=== PATIENT | female | born 1945 | race Caucasian/White ===

== ENCOUNTER 2017-10-18 19:23 | Inpatient (IN) | payer OTHER ==
[2017-10-18] MEDS ORDERED: ALBUTEROL 2.5 MG/3 ML NEB SOL ONE (20:47)
[2017-10-18] MEDS ORDERED: IPRATROPIUM BROM 0.5MG/2.5ML ONE (20:47)
[2017-10-18 21:16] LABS: Absolute Lymphocytes (CBC) 3.2 K/uL (0.7-4.9); Absolute Neutrophil 10.9 K/uL (1.8-8.0); Basophils % 0.4 % (0-1.3); Hematocrit 40.7 % (36.0-45.0); Lymphocytes % 20.8 % (15.3-44.8); MCH 31.9 pg (27.0-35.0); MCV 91.1 fL (80-100); MPV 6.9 fL (7.6-11.3); Monocytes % 6.8 % (3.3-12.3); RBC Red Blood Cell Count 4.47 M/uL (3.86-4.86)
[2017-10-18 21:37] LABS: ALT/SGPT 17 U/L (12-78); AST/SGOT 9 U/L (15-37); Albumin 3.6 g/dL (3.4-5.0); Alkaline Phosphatase 82 U/L (45-117); BUN Blood Urea Nitrogen 7 mg/dL (7-18); Bicarbonate 29 mmol/L (21-32); Bilirubin Direct 0.1 mg/dL (0-0.2); Bilirubin Total 0.4 mg/dL (0.2-1.0); Glucose Level 119 mg/dL (74-106); Lipase 369 U/L (73-393); NT PRO-BNP 122 pg/mL (<125); Potassium 3.6 mmol/L (3.5-5.1); Protein, Total 7.5 g/dL (6.4-8.2); Sodium Level 132 mmol/L (136-145)
--- NOTE | 2017-10-18 21:51 | RAD REPORT ---
EXAM DESCRIPTION: Janes Single View10/18/2017 9:27 pm CLINICAL HISTORY: sob COMPARISON: October 14, 2017 FINDINGS: The lungs are hyperaerated. The lung interstitial pattern is mildly prominent. I suspect this is chronic. The heart is normal size. Aorta is tortuous/ectatic IMPRESSION: COPD without visualization of an acute abnormality
[2017-10-18] MEDS ORDERED: METHYLPREDNISOLONE 125 MG INJ ONE (22:00)
--- NOTE | 2017-10-18 23:50 | ER ---
Nurse's Notes [facility] Name: Yina Edouard Age: 72 yrs Sex: Female : 1945 Arrival Date: 10/18/2017 Time: 19:27 Bed 8 Private MD: Tevin Iniguez R Diagnosis: Dyspnea, unspecified;Chronic obstructive pulmonary disease, unspecified Presentation: 10/18 19:32 Presenting complaint: Patient states: SOB for 3 weeks, DX with bronchitis. Given ABX aj and steroids, reports that she is not improving. Transition of care: patient was not received from another setting of care. Onset of symptoms was September 30, 2017. Risk Assessment: Do you want to hurt yourself or someone else? Patient reports no desire to harm self or others. Initial Sepsis Screen: Does the patient meet any 2 criteria? No. Patient's initial sepsis screen is negative. Does the patient have a suspected source of infection? No. Patient's initial sepsis screen is negative. Care prior to arrival: None. 19:32 Method Of Arrival: Ambulatory 19:32 Acuity: ABEL 3 aj Triage Assessment: 19:35 General: Appears in no apparent distress. uncomfortable, Behavior is calm, cooperative, aj appropriate for age. Pain: Denies pain. Neuro: Level of Consciousness is awake, alert, obeys commands, Oriented to person, place, time, situation, Appropriate for age. Respiratory: Reports shortness of breath cough that is Airway is patent Respiratory effort is even, labored, Respiratory pattern is symmetrical, tachypnea Breath sounds with wheezes bilaterally. Onset: The symptoms/episode began/occurred gradually, the patient has mild shortness of breath. Derm: Skin is intact, is healthy with good turgor, Skin is pink, warm \T\ dry. normal. Historical: - Allergies: 19:35 Sulfa (Sulfonamide Antibiotics); aj - Home Meds: 19:35 Levaquin Oral [Active]; metformin 500 mg oral tab 2 times per day [Active]; aj lisinopril-hydrochlorothiazide 20-25 mg oral tab 1 tab once daily [Active]; simvastatin 40 mg Oral tab 1 tab once daily [Active]; clopidogrel 75 mg oral tab once daily [Active]; aspirin 81 mg Oral chew 1 tab once daily [Active]; - PMHx: 19:35 Diabetes - NIDDM; Hypertension; Bronchitis; aj - PSHx: 19:35 Heart stents; aj - Immunization history:: Adult Immunizations up to date. - Social history:: Smoking status: Patient uses tobacco products, Patient reports being heavy smoker until symptoms started. Has not smoked in 3 weeks since symptom onset. - Ebola Screening: : Patient negative for fever greater than or equal to 101.5 degrees Fahrenheit, and additional compatible Ebola Virus Disease symptoms Patient denies exposure to infectious person Patient denies travel to an Ebola-affected area in the 21 days before illness onset No symptoms or risks identified at this time. - Family history:: not pertinent. - Hospitalizations: : No recent hospitalization is reported. Screenin:14 Abuse screen: Denies threats or abuse. Denies injuries from another. Nutritional lp1 screening: No deficits noted. Tuberculosis screening: No symptoms or risk factors identified. Fall Risk None identified. Assessment: 20:30 General: Appears uncomfortable, Behavior is appropriate for age. Pain: Complains of lp1 pain in chest Aggravated by increased activity. Neuro: Level of Consciousness is awake, alert, obeys commands, Oriented to person, place, time, situation. Cardiovascular: Patient's skin is warm and dry. Rhythm is sinus rhythm. Respiratory: Airway is patent Trachea midline Respiratory effort is even, labored, Respiratory pattern is symmetrical, Breath sounds are diminished bilaterally. Onset: The symptoms/episode began/occurred gradually, the patient has moderate shortness of breath. GI: Abdomen is non-distended. : No signs and/or symptoms were reported regarding the genitourinary system. EENT: No signs and/or symptoms were reported regarding the EENT system. Derm: Skin is pink, warm \T\ dry. Musculoskeletal: Circulation, motion, and sensation intact. 21:30 Respiratory: Respiratory effort is even, Respiratory pattern is symmetrical, Breath lp1 sounds are diminished bilaterally. 21:30 Reassessment: Patient sitting up at 90 degrees for comfort. lp1 22:30 Reassessment: Patient appears in no apparent distress at this time. Patient and/or lp1 family updated on plan of care and expected duration. Pain level reassessed. Patient sitting up in bed. 23:30 Reassessment: Patient appears in no apparent distress at this time. Patient and/or lp1 family updated on plan of care and expected duration. Pain level reassessed. Patient is alert, oriented x 3, equal unlabored respirations, skin warm/dry/pink. Patient states feeling better. Vital Signs: 19:35 BP 141 / 99; Pulse 81; Resp 16; Temp 98.2; Pulse Ox 95% on R/A; Weight 70.31 kg; Height aj 5 ft. 3 in. (160.02 cm); 20:30 BP 136 / 96; Pulse 74; Resp 20; Pulse Ox 97% on 2 lpm NC; lp1 21:30 BP 124 / 69; Pulse 76; Resp 19; Pulse Ox 98% on 2 lpm NC; lp1 22:30 BP 115 / 62; Pulse 74; Resp 22; Pulse Ox 97% on 2 lpm NC; lp1 23:00 BP 126 / 68; Pulse 75; Resp 19; Pulse Ox 97% on R/A; lp1 10/19 00:00 BP 133 / 84; Pulse 70; Resp 20; Pulse Ox 96% on 2 lpm NC; lp1 10/18 19:35 Body Mass Index 27.46 (70.31 kg, 160.02 cm) aj ED Course: 10/18 19:27 Patient arrived in ED. es 19:27 Tevin Iniguez MD is Private Physician. es 19:33 Triage completed. aj 19:35 Arm band placed on left wrist. aj 20:06 Pee Ortiz MD is Attending Physician. rn 20:42 Emilie Sneed, LINK is Primary Nurse. lp1 20:50 Missed attempt(s): 20 gauge in right forearm. lp1 20:55 First set of blood cultures drawn by me. Inserted saline lock: 20 gauge in right lp1 antecubital area, using aseptic technique. Blood collected. 21:15 Patient has correct armband on for positive identification. Placed in gown. Bed in low lp1 position. improvement spec on. Pulse ox on. NIBP on. 21:25 XRAY CXR (1 view) In Process Unspecified. EDMS 21:25 X-ray completed. Portable x-ray completed in exam room. Patient tolerated procedure kw well. 21:45 No provider procedures requiring assistance completed. lp1 23:50 Tevin Iniguez MD is Hospitalizing Provider. rn 10/19 00:40 Patient admitted, IV remains in place. lp1 Administered Medications: 10/18 20:50 Drug: Albuterol 2.5 mg Route: Inhalation; lp1 20:50 Drug: AtroVENT Aerosol 0.5 mg Route: Inhalation; lp1 22:05 Drug: SOLU-Medrol 125 mg Route: IVP; Site: right antecubital; lp1 23:00 Follow up: Response: No adverse reaction lp1 Outcome: 23:50 Decision to Hospitalize by Provider. link 10/19 00:40 Condition: stable lp1 Instructed on the need for admit. 00:44 Admitted to Med/surg via wheelchair, room 231, with oxygen, with chart, Report called lp1 to Robyn Navarro RN 00:58 Patient left the ED. lp1 Signatures: Dispatcher [employer] Mis Marquez RN RN aj Salyer, Edna es Nieto, Roman, MD MD rn Whitley, Kimberlee kw Pena, Laura, RN RN lp1
--- NOTE | 2017-10-18 23:50 | EDPHYS ---
Physician Documentation [facility] Name: Yina Edouard Age: 72 yrs Sex: Female : 1945 Arrival Date: 10/18/2017 Time: 19:27 Bed 8 Private MD: Tevin Iniguez R ED Physician Pee Ortiz HPI: 10/18 20:23 This 72 yrs old Female presents to ER via Ambulatory with complaints of rn Breathing Difficulty. 20:23 The patient has shortness of breath at rest, with light activity. Onset: The rn symptoms/episode began/occurred 2 week(s) ago. Duration: The symptoms are continuous. The patient's shortness of breath is aggravated by exertion, light activity, supine position, talking, walking. Associated signs and symptoms: Pertinent positives: productive cough, Pertinent negatives: fever, hemoptysis. Severity of symptoms: At their worst the symptoms were moderate in the emergency department the symptoms are unchanged. The patient has experienced similar episodes in the past. The patient has been recently seen by a physician:. Has been on steroids, amoxicillin, levofloxacin, inhaler, slowly worsening over last 2 weeks, no fever, + cough, seen by pcp twice, not improving, not on oxygen at home, no longer smokes. . Historical: - Allergies: 19:35 Sulfa (Sulfonamide Antibiotics); aj - Home Meds: 19:35 Levaquin Oral [Active]; metformin 500 mg oral tab 2 times per day [Active]; aj lisinopril-hydrochlorothiazide 20-25 mg oral tab 1 tab once daily [Active]; simvastatin 40 mg Oral tab 1 tab once daily [Active]; clopidogrel 75 mg oral tab once daily [Active]; aspirin 81 mg Oral chew 1 tab once daily [Active]; - PMHx: 19:35 Diabetes - NIDDM; Hypertension; Bronchitis; aj - PSHx: 19:35 Heart stents; aj - Immunization history:: Adult Immunizations up to date. - Social history:: Smoking status: Patient uses tobacco products, Patient reports being heavy smoker until symptoms started. Has not smoked in 3 weeks since symptom onset. - Ebola Screening: : Patient negative for fever greater than or equal to 101.5 degrees Fahrenheit, and additional compatible Ebola Virus Disease symptoms Patient denies exposure to infectious person Patient denies travel to an Ebola-affected area in the 21 days before illness onset No symptoms or risks identified at this time. - Family history:: not pertinent. - Hospitalizations: : No recent hospitalization is reported. ROS: 20:23 Constitutional: Negative for fever, chills, and weight loss, Eyes: Negative for injury, rn pain, redness, and discharge, Cardiovascular: Negative for chest pain, palpitations Respiratory: Negative for wheezing, and pleuritic chest pain, Abdomen/GI: + mild abd cramping and diarrhea MS/Extremity: Negative for injury and deformity, Skin: Negative for injury, rash, and discoloration, Neuro: Negative for headache, weakness, numbness, tingling, and seizure. Exam: 20:23 Constitutional: This is a well developed, well nourished patient who is awake, alert, rn and in no acute distress. Head/Face: Normocephalic, atraumatic. Eyes: Pupils equal round and reactive to light, extra-ocular motions intact. Lids and lashes normal. Conjunctiva and sclera are non-icteric and not injected. Cornea within normal limits. Periorbital areas with no swelling, redness, or edema. Neck: Trachea midline, no thyromegaly or masses palpated, and no cervical lymphadenopathy. Supple, full range of motion without nuchal rigidity, or vertebral point tenderness. No Meningismus. Cardiovascular: Regular rate and rhythm with a normal S1 and S2. No gallops, murmurs, or rubs. Normal PMI, no JVD. No pulse deficits. Respiratory: + mild tachypnea with 5 word sentences, no retractions, diminished bilateral bases Abdomen/GI: soft, non-tender MS/ Extremity: Pulses equal, no cyanosis. Neurovascular intact. Full, normal range of motion. Equal circumference. Neuro: Awake and alert, GCS 15, oriented to person, place, time, and situation. Cranial nerves II-XII grossly intact. Motor strength 5/5 in all extremities. Sensory grossly intact. Vital Signs: 19:35 BP 141 / 99; Pulse 81; Resp 16; Temp 98.2; Pulse Ox 95% on R/A; Weight 70.31 kg; Height aj 5 ft. 3 in. (160.02 cm); 20:30 BP 136 / 96; Pulse 74; Resp 20; Pulse Ox 97% on 2 lpm NC; lp1 21:30 BP 124 / 69; Pulse 76; Resp 19; Pulse Ox 98% on 2 lpm NC; lp1 22:30 BP 115 / 62; Pulse 74; Resp 22; Pulse Ox 97% on 2 lpm NC; lp1 23:00 BP 126 / 68; Pulse 75; Resp 19; Pulse Ox 97% on R/A; lp1 10/19 00:00 BP 133 / 84; Pulse 70; Resp 20; Pulse Ox 96% on 2 lpm NC; lp1 10/18 19:35 Body Mass Index 27.46 (70.31 kg, 160.02 cm) aj MDM: 10/18 20:06 Patient medically screened. rn 23:49 Differential diagnosis: asthma, Bronchitis Chronic Obstructive Pulmonary Disease rn Myocardial Infarction pneumonia, Pneumothorax pulmonary edema, reactive airway disease, Sepsis. Data reviewed: vital signs, nurses notes, lab test result(s), EKG, radiologic studies, plain films, and as a result, I will admit patient. Counseling: I had a detailed discussion with the patient and/or guardian regarding: the historical points, exam findings, and any diagnostic results supporting the discharge/admit diagnosis, lab results, radiology results, the need for further work-up and treatment in the hospital. Response to treatment: the patient's symptoms have mildly improved after treatment, and as a result, I will admit patient. Admission orders: after a detailed discussion of the patient's condition and case, the admit orders are written by me. 23:49 ED course: Consulted Dr. Iniguez, will admit for dyspnea, no change in CXR, improved rn slightly with steroids and inhaled treatments.. 10/18 20:15 Order name: Blood Culture Adult (2) rn 10/18 20:15 Order name: BMP; Complete Time: 21:52 10/18 20:15 Order name: CBC with Diff; Complete Time: 23:48 10/18 20:15 Order name: Hepatic Function; Complete Time: 21:52 10/18 20:15 Order name: Lipase; Complete Time: 21:52 10/18 20:15 Order name: NT PRO-BNP; Complete Time: 21:52 10/18 20:15 Order name: XRAY CXR (1 view); Complete Time: 21:52 10/18 20:15 Order name: Troponin (emerg Dept Use Only); Complete Time: 21:52 10/18 20:15 Order name: EKG; Complete Time: 20:15 rn 10/18 20:15 Order name: Procalcitonin; Complete Time: 23:48 rn 10/18 20:15 Order name: Blood Culture [facility] 10/18 20:15 Order name: Cardiac monitoring; Complete Time: 21:14 rn 10/18 20:15 Order name: EKG - Nurse/Tech; Complete Time: 21:35 rn 10/18 20:15 Order name: IV Saline Lock; Complete Time: 21:13 rn 10/18 20:15 Order name: Labs collected and sent; Complete Time: 21:13 rn 10/18 20:15 Order name: O2 Per Protocol; Complete Time: 21:14 rn 10/18 20:15 Order name: O2 Sat Monitoring; Complete Time: 21:14 rn Administered Medications: 20:50 Drug: Albuterol 2.5 mg Route: Inhalation; lp1 20:50 Drug: AtroVENT Aerosol 0.5 mg Route: Inhalation; lp1 22:05 Drug: SOLU-Medrol 125 mg Route: IVP; Site: right antecubital; lp1 23:00 Follow up: Response: No adverse reaction lp1 Disposition: 10/18/17 23:50 Hospitalization ordered by Tevin Iniguez for Inpatient Admission. Preliminary diagnosis are Dyspnea, unspecified, Chronic obstructive pulmonary disease, unspecified. - Bed requested for Telemetry/MedSurg (Inpatient). - Status is Inpatient Admission. lp1 - Condition is Stable. - Problem is an ongoing problem. - Symptoms have improved. UTI on Admission? No Signatures: Dispatcher [employer] [facility] Brigid Smith RN RN kl Myers, Amanda, RN RN aj Nieto, Roman, MD MD rn Pena, Laura, RN RN lp1 Corrections: (The following items were deleted from the chart) 20:26 20:23 Constitutional: Negative for fever, chills, and weight loss, Eyes: Negative for rn injury, pain, redness, and discharge, Cardiovascular: Negative for chest pain, palpitations Respiratory: Negative for wheezing, and pleuritic chest pain, Abdomen/GI: Negative for abdominal pain, nausea, vomiting, diarrhea, and constipation, MS/Extremity: Negative for injury and deformity, Skin: Negative for injury, rash, and discoloration, Neuro: Negative for headache, weakness, numbness, tingling, and seizure, rn 10/19 00:24 10/18 23:50 Hospitalization Ordered by Tevin Iniguez MD for Inpatient Admission. Preliminary diagnosis is Dyspnea, unspecified; Chronic obstructive pulmonary disease, unspecified. Bed requested for Telemetry/MedSurg (Inpatient). Status is Inpatient Admission. Condition is Stable. Problem is an ongoing problem. Symptoms have improved. UTI on Admission? No. rn 10/19 00:27 00:24 10/18/2017 23:50 Hospitalization Ordered by Tevin Iniguez MD for Inpatient kl Admission. Preliminary diagnosis is Dyspnea, unspecified; Chronic obstructive pulmonary disease, unspecified. Bed requested for Telemetry/MedSurg (Inpatient). Status is Inpatient Admission. Condition is Stable. Problem is an ongoing problem. Symptoms have improved. UTI on Admission? No. kl 00:58 00:27 10/18/2017 23:50 Hospitalization Ordered by Tevin Iniguez MD for Inpatient lp1 Admission. Preliminary diagnosis is Dyspnea, unspecified; Chronic obstructive pulmonary disease, unspecified. Bed requested for Telemetry/MedSurg (Inpatient). Status is Inpatient Admission. Condition is Stable. Problem is an ongoing problem. Symptoms have improved. UTI on Admission? No. kl
[2017-10-19] MEDS ORDERED: ACETAMINOPHEN 500 MG TAB PO PRN (00:49)
[2017-10-19] MEDS ORDERED: ONDANSETRON 4 MG/2 ML VIAL IV PRN (00:49)
[2017-10-19] MEDS: METHYLPREDNISOLONE 40 MG INJ IV SCH ×3 (01:00→16:37)
[2017-10-19] MEDS: IPRATROPIUM BROM 0.5MG/2.5ML NEB SCH ×8 (01:22→23:14)
[2017-10-19] MEDS: ALBUTEROL 2.5 MG/3 ML NEB SOL NEB SCH ×8 (01:22→23:14)
[2017-10-19 02:54] LABS: Urine Appearance CLOUDY; Urine Bilirubin NEGATIVE (NEG); Urine Blood NEGATIVE (NEG); Urine Color DK YELLOW; Urine Glucose NEGATIVE (NEG); Urine Protein NEGATIVE (NEG); Urine Urobilinogen 0.2 mg/dL (0.2-1.0); Urine pH 6.5 (5.0-7.0)
[2017-10-19 02:55] LABS: Urine Microscopic Reflex ORDER UMIC
[2017-10-19 03:04] LABS: Calcium Oxalate Crystals- Ur MANY (NONE SEEN); Urine Bacteria <20 /HPF (<20); Urine Culture Reflex Order NOT NEEDED; Urine RBC NONE SEEN /HPF (NONE SEEN)
[2017-10-19 05:29] LABS: Absolute Lymphocytes (CBC) 1.1 K/uL (0.7-4.9); Absolute Monocytes 0.2 K/uL (0.1-1.3); Basophils % 0.1 % (0-1.3); Hematocrit 38.4 % (36.0-45.0); Lymphocytes % 8.6 % (15.3-44.8); MCV 91.2 fL (80-100); MPV 6.8 fL (7.6-11.3); Monocytes % 1.4 % (3.3-12.3); RBC Red Blood Cell Count 4.21 M/uL (3.86-4.86)
[2017-10-19 05:44] LABS: BUN Blood Urea Nitrogen 8 mg/dL (7-18); Bicarbonate 27 mmol/L (21-32); Glucose Level 213 mg/dL (74-106); NT PRO-BNP 90 pg/mL (<125); Potassium 3.4 mmol/L (3.5-5.1); Sodium Level 132 mmol/L (136-145)
[2017-10-19 06:00] LABS: Blood Morphology Comment NOT SEEN (NOT SEEN); Platelet Estimate ADEQ
[2017-10-19] MEDS: ASPIRIN EC 81 MG TAB PO SCH (08:16)
[2017-10-19] MEDS: AZITHROMYCIN 250 MG TAB PO SCH (10:09)
--- NOTE | 2017-10-19 10:28 | EKG ---
Test Date: 2017-10-18 Test Time: 21:30:50 Greenhouse Specialist: FLAVIO MEASUREMENT RESULTS: Intervals: Rate: 78 DE: 160 QRSD: 80 QT: 416 QTc: 474 [place]: P: 63 DE: 160 QRS: 33 T: 42 INTERPRETIVE STATEMENTS: Normal sinus rhythm Right atrial enlargement Borderline ECG Compared to ECG 04/11/2003 06:14:00 Atrial abnormality now present Sinus bradycardia no longer present T-wave abnormality no longer present Possible ischemia no longer present Electronically Signed On 10-19-17 10:27:15 CDT by Gian Ornelas
[2017-10-19] MEDS ORDERED: AZITHROMYCIN 250 MG TAB PO SCH (21:00)
[2017-10-20] MEDS: ALBUTEROL 2.5 MG/3 ML NEB SOL NEB SCH ×8 (00:49→23:12)
[2017-10-20] MEDS: IPRATROPIUM BROM 0.5MG/2.5ML NEB SCH ×8 (00:49→23:12)
[2017-10-20] MEDS: METHYLPREDNISOLONE 40 MG INJ IV SCH ×2 (01:31→07:53)
--- NOTE | 2017-10-20 02:40 | HP ---
Date of Admission: 10/19/2017 Chief Complaint: Coughing and wheezing. History Of Present Illness: A 72-year-old female who was seen in the office recently for upper respi ratory infection and bronchitis. She was given oral antibiotic; however, she returned because of con tinued coughing. Chest x-ray was done. There was no evidence of pneumonia. The patient was given L evaquin. However, the patient returned to the emergency room because of continued coughing and wheez ing. The patient had a repeat chest x-ray. There is no pneumonia. However, her white count is 13.3 . In view of her continued symptoms in spite of oral antibiotics, the patient is admitted for IV ernie roid therapy, nebulizer therapy in addition to the antibiotics. The patient denied any history of ch est pain. Past Medical History: 1.Positive for COPD. 2.Hyperlipidemia. 3.Hypertension. 4.History of coronary artery disease. Past Surgical History: Positive for coronary stenting. Review of Systems: No chest pain. Physical Examination: General: Revealed a 72-year-old female with audible wheezing. Temperature normal. HEENT: Congested throat. Neck: Supple. JVD negative. Chest: Bilateral wheezes. Heart: Regular. Abdomen: Soft. Extremities: No edema. Laboratory Data: White count 13,000. Chest x-ray, COPD changes. Assessment: 1.Chronic obstructive pulmonary disease exacerbation, not responding to oral antibiotics and steroid s. 2.Chronic obstructive pulmonary disease. 3.Hypertension. 4.Hyperlipidemia. 5.Known coronary artery disease, stable. Plan: The patient is started on IV steroids and breathing treatments. She will be restarted on her regular medications. POLINA/ANGELIKA Voice ID: [id number]
[2017-10-20] MEDS: AZITHROMYCIN 250 MG TAB PO SCH (07:53)
[2017-10-20] MEDS: ASPIRIN EC 81 MG TAB PO SCH (07:53)
[2017-10-20] MEDS: predniSONE 20 MG TAB PO SCH (20:57)
--- NOTE | 2017-10-20 21:10 | PN ---
The patient's wheezing is better with the IV steroids. She is ambulating in the room. Her O2 satura tion looks upish. She will be changed to oral steroids today and re-examined and assessed tomorrow. POLINA/ANGELIKA Voice ID: [id number] Report ID: [id number]
[2017-10-21] MEDS: IPRATROPIUM BROM 0.5MG/2.5ML NEB SCH ×2 (03:42→07:52)
[2017-10-21] MEDS: ALBUTEROL 2.5 MG/3 ML NEB SOL NEB SCH ×2 (03:42→07:52)
[2017-10-21] MEDS: predniSONE 20 MG TAB PO SCH (09:08)
[2017-10-21] MEDS: AZITHROMYCIN 250 MG TAB PO SCH (09:08)
[2017-10-21] MEDS: ASPIRIN EC 81 MG TAB PO SCH (09:08)
--- NOTE | 2017-11-29 13:50 | DS ---
Date of Discharge: 10/21/2017 Final Diagnoses: 1.Chronic obstructive pulmonary disease exacerbation. 2.Chronic obstructive pulmonary disease. 3.Hypertension. 4.Hyperlipidemia. 5.Stable coronary artery disease. Hospital Course: After admission to the hospital, the patient received [id number] breathing tr eatments. She also received IV steroids. The patient was restarted on her regular medications. The patient showed improvement over the next few days and was discharged home on 10/21/2017 on oral ster oid and to have follow up in the office. Laboratory Data: Please refer to the chart. POLINA/ANGELIKA Voice ID: [id number] Report ID: [id number]
== END 2017-10-21 09:52 | disposition home or self-care (01) | DRG 192 ==
LOC: ER 19:23 → 2ND 10-19 00:46
PROVIDERS: ADMIT Internal Medicine; ATTEND Internal Medicine
DX: J44.1 Chronic obstructive pulmonary disease with (acute) exacerbation (principal); E78.5 Hyperlipidemia, unspecified; I10 Essential (primary) hypertension; I25.10 Atherosclerotic heart disease of native coronary artery without angina pectoris; Z95.5 Presence of coronary angioplasty implant and graft; Z87.891 Personal history of nicotine dependence; Z79.02 Long term (current) use of antithrombotics/antiplatelets; Z79.82 Long term (current) use of aspirin; Z88.2 Allergy status to sulfonamides
CPT/HCPCS: 36415; 71045; 71275; 80048; 80076; 81003; 81015; 82550; 82553; 82805; 83690; 83735; 83880; 84145; 84484; 85025; 85610; 85730; 87040; 87070; 87205; 93005; 94640; 94760; 96374; 96375; 99285; J2920; J2930; J7030; J7512; Q9967

== ENCOUNTER 2017-10-21 17:50 | Emergency (ER) | payer OTHER ==
[2017-10-21] MEDS ORDERED: IPRATROPIUM BROM 0.5MG/2.5ML ONE (18:44)
[2017-10-21] MEDS ORDERED: ALBUTEROL 2.5 MG/3 ML NEB SOL ONE (18:44)
[2017-10-21] MEDS ORDERED: Levofloxacin500mg IV 500 MG/100 ML BAG IV ONE (18:58)
[2017-10-21] MEDS ORDERED: METHYLPREDNISOLONE 125 MG INJ ONE (18:58)
[2017-10-21] MEDS ORDERED: NA CHLORIDE 0.9% 1,000 ML ONE (18:59)
[2017-10-21 19:01] LABS: Arterial Blood Carboxyhemoglob 0.9 % (0-1.5); Blood Gas Oxyhemoglobin 92.4 % (94-97)
[2017-10-21 19:13] LABS: Absolute Lymphocytes (CBC) 3.7 K/uL (0.7-4.9); Absolute Monocytes 1.6 K/uL (0.1-1.3); Absolute Neutrophil 15.9 K/uL (1.8-8.0); Basophils % 0.3 % (0-1.3); Eosinophils % 0.1 % (0-4.4); Hematocrit 41.9 % (36.0-45.0); Lymphocytes % 17.5 % (15.3-44.8); MCH 31.4 pg (27.0-35.0); MCV 91.5 fL (80-100); MPV 6.9 fL (7.6-11.3); Monocytes % 7.5 % (3.3-12.3); RBC Red Blood Cell Count 4.58 M/uL (3.86-4.86)
[2017-10-21 19:24] LABS: ALT/SGPT 25 U/L (12-78); AST/SGOT 16 U/L (15-37); Albumin 3.7 g/dL (3.4-5.0); Alkaline Phosphatase 73 U/L (45-117); BUN Blood Urea Nitrogen 13 mg/dL (7-18); Bicarbonate 29 mmol/L (21-32); Bilirubin Direct < 0.1 mg/dL (0-0.2); Bilirubin Total 0.2 mg/dL (0.2-1.0); CKMB Creatine Kinase MB 3.3 ng/mL (0.3-3.6); Creatine Phosphokinase 108 U/L (26-192); Glucose Level 94 mg/dL (74-106); Lipase 230 U/L (73-393); Magnesium 2.4 mg/dL (1.8-2.4); NT PRO-BNP 238 pg/mL (<125); Potassium 3.9 mmol/L (3.5-5.1); Protein, Total 7.3 g/dL (6.4-8.2); Sodium Level 133 mmol/L (136-145)
[2017-10-21 19:37] LABS: Protime INR 0.89
[2017-10-21] MEDS ORDERED: predniSONE 20 MG TAB ONE (19:52)
--- NOTE | 2017-10-21 19:53 | RAD REPORT ---
EXAM DESCRIPTION: RAD - Chest Single View - 10/21/2017 7:12 pm CLINICAL HISTORY: Shortness of breath, cough, COPD COMPARISON: October 18 TECHNIQUE: AP portable chest image was obtained 1903 hours . FINDINGS: No mass, consolidation or significant failure finding. Interstitial fibrotic pattern is pr esent not substantially different from comparison. Trachea is midline. Heart and vasculature are norm al. No measurable pleural effusion and no pneumothorax. No gross bony abnormality seen. No acute aort ic findings suspected. IMPRESSION: Fibrotic lung pattern similar to comparison. No new or progressive finding since October 18 .
--- NOTE | 2017-10-21 19:57 | RAD REPORT ---
EXAM DESCRIPTION: CT - Chest For Pe Angio - 10/21/2017 7:47 pm CLINICAL HISTORY: Chest pain, shortness of breath, history of bronchitis, hypertension and COPD, 2 pack per day smokin g history COMPARISON: Chest films same date TECHNIQUE: Dynamically enhanced 3 mm thick images of the chest were obtained during administration o f approximately 150mL Isovue 370 IV contrast. Coronal and oblique reconstruction images were generate d and reviewed. Exam utilizes a protocol to evaluate the pulmonary arterial tree. All CT scans are performed using dose optimization technique as appropriate and may include automated exposure control or mA/KV adjustment according to patient size. FINDINGS: No pulmonary emboli are identified. The aorta as imaged shows no acute or suspicious finding. No pericardial thickening or effusion. No focal mass or consolidation. 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 A few scattered areas o f subpleural alveolar opacification present. No pleural effusion or pleural thickening. No pleural ba sed mass. No mediastinal or hilar suspicious masses. No chest wall masses or abnormal axillary lymphadenopathy. A 2.5 centimeter left adrenal mass is present. Attenuation value is negative. This indicates incident al adrenal adenoma with no further workup needed. In the upper pole right kidney there is a partially imaged low-attenuation mass 3 cm in size. This is not fully assessed on this study but is probably a cyst. IMPRESSION: No pulmonary emboli identified. Baseline fibro emphysematous lung pattern with scattered areas of interstitial thickening and patchy alveolar opacification. This is likely a mild pneumonitis. No consolidated infiltrate. Incidental left adrenal adenoma and incompletely imaged 3 centimeter left renal mass, probably a cyst .
[2017-10-21 20:22] LABS: Blood Morphology Comment NOT SEEN (NOT SEEN); Platelet Estimate ADEQ
--- NOTE | 2017-10-21 20:49 | ER ---
Nurse's Notes [facility] Name: Yina Edouard Age: 72 yrs Sex: Female : 1945 Arrival Date: 10/21/2017 Time: 17:52 Bed 27 Private MD: Tevin Iniguez R Diagnosis: Chronic obstructive pulmonary disease with (acute) exacerbation;Type 2 diabetes mellitus;Elevated white blood cell count;Pneumonia due to other specified bacteria Presentation: 10/21 17:55 Presenting complaint: Patient states: "I was admitted on the for Shortness of aa5 breath and released today". Pt was prescribed Z-bautista, Medrol dose pack, and Flonase upon d/c home. Transition of care: patient was not received from another setting of care. Onset of symptoms was October 2017. Risk Assessment: Do you want to hurt yourself or someone else? Patient reports no desire to harm self or others. Care prior to arrival: None. 17:55 Method Of Arrival: Ambulatory aa5 17:55 Acuity: ABEL 3 aa5 22:03 Initial Sepsis Screen: Does the patient meet any 2 criteria? No. Patient's initial tl3 sepsis screen is negative. Does the patient have a suspected source of infection? No. Patient's initial sepsis screen is negative. Triage Assessment: 22:03 Respiratory:. tl3 Historical: - Allergies: 17:58 Sulfa (Sulfonamide Antibiotics); aa5 - PMHx: 17:58 Bronchitis; Diabetes - NIDDM; Hypertension; COPD; aa5 - PSHx: 17:58 Heart stents; aa5 - Immunization history:: Adult Immunizations unknown. - Social history:: Smoking status: Patient uses tobacco products, smokes two packs cigarettes per day. - Ebola Screening: : No symptoms or risks identified at this time. - Family history:: not pertinent. Screenin:30 Abuse screen: Denies threats or abuse. Nutritional screening: No deficits noted. tl3 Tuberculosis screening: No symptoms or risk factors identified. Fall Risk None identified. Assessment: 18:57 General: Appears distressed, uncomfortable, well groomed, well developed, well tl3 nourished, Behavior is calm, cooperative, appropriate for age. 18:57 Pain: Complains of pain in chest. Neuro: Level of Consciousness is awake, alert, obeys tl3 commands, Oriented to person, place, time, situation, Appropriate for age. Cardiovascular: Heart tones S1 S2 present Patient's skin is warm and dry. Cardiovascular: Rhythm is regular. Respiratory: Airway is patent Respiratory effort is even, labored, with nasal flaring, using tripod position, Respiratory pattern is tachypnea Breath sounds are coarse bilaterally. Breath sounds are diminished bilaterally. Breath sounds with wheezes bilaterally. GI: No signs and/or symptoms were reported involving the gastrointestinal system. : No signs and/or symptoms were reported regarding the genitourinary system. EENT: No signs and/or symptoms were reported regarding the EENT system. Derm: No signs and/or symptoms reported regarding the dermatologic system. Musculoskeletal: No signs and/or symptoms reported regarding the musculoskeletal system. 19:41 Reassessment: Patient and/or family updated on plan of care and expected duration. Pain tl3 level reassessed. Patient is alert, oriented x 3, equal unlabored respirations, skin warm/dry/pink. Pt BBS much improved after neb treatment, no wheezing noted. 21:10 Reassessment: Patient appears in no apparent distress at this time. No changes from tl3 previously documented assessment. Patient and/or family updated on plan of care and expected duration. Pain level reassessed. Patient is alert, oriented x 3, equal unlabored respirations, skin warm/dry/pink. Dr Olivia at bedside for reassessment. Vital Signs: 17:57 BP 146 / 77; Pulse 82; Resp 18 S; Temp 97.8(TE); Pulse Ox 95% on R/A; Weight 73.48 kg aa5 (R); Pain 2/10; 18:33 BP 122 / 99; Pulse 76; Resp 28; Pulse Ox 97% on 2 lpm NC; tl3 19:00 BP 150 / 71; Pulse 70; Resp 24; Pulse Ox 100% on 2 lpm NC; tl3 19:30 BP 128 / 52; Pulse 79; Resp 20; Pulse Ox 95% on R/A; tl3 21:10 BP 117 / 79; Pulse 74; Resp 18; Pulse Ox 99% on R/A; tl3 17:57 Pt c/o pain to "between shoulder blades" aa5 ED Course: 17:52 Patient arrived in ED. mr 17:52 Tevin Iniguez MD is Private Physician. mr 17:56 Triage completed. aa5 17:56 Arm band placed on. aa5 18:05 EKG completed in triage. Results shown to MD. aa5 18:23 Daniel Olivia MD is Attending Physician. jenny 18:28 Kera Mariscal, LINK is Primary Nurse. tl3 18:30 Inserted saline lock: 20 gauge in right forearm, using aseptic technique. Blood tl3 collected. 18:56 Radiology exam delayed due to lab results not completed at this time. (BUN/Creatinine). mw3 19:13 XRAY Chest (1 view) In Process Unspecified. EDMS 19:18 Notified ED physician of a critical lab result(s). WBCs 21.3 Dr Olivia notified. bb 19:[address] mw3 19:30 Patient has correct armband on for positive identification. Placed in gown. Bed in low tl3 position. Call light in reach. Side rails up X 1. Adult w/ patient. cardiac monitor on. Pulse ox on. NIBP on. 19:30 No provider procedures requiring assistance completed. tl3 19:46 CT completed. Patient tolerated procedure well. Patient moved back from CT. mw3 19:47 CT Chest For PE Angio In Process Unspecified. EDMS 20:47 Tevin Iniguez MD is Referral Physician. jenny 21:10 IV discontinued, intact, bleeding controlled, No redness/swelling at site. Pressure tl3 dressing applied. 21:59 Urine Dipstick--Ancillary (enter results) Sent. tl3 Administered Medications: 19:02 Drug: NS 0.9% 1000 ml Route: IV; Rate: 125 ml/hr; Site: left forearm; mg2 19:02 Drug: SOLU-Medrol 125 mg Route: IVP; Site: left forearm; mg2 19:44 Follow up: Response: No adverse reaction tl3 19:02 Drug: Albuterol - atroVENT (3:1) (2.5 mg - 0.5 mg) 3 ml Route: Nebulizer; mg2 19:29 Follow up: Response: No adverse reaction; Wheezing diminished tl3 19:40 Drug: levofloxacin 500 mg Volume: 100 ml; Route: IVPB; Infused Over: 60 mins; Site: tl3 left forearm; Delivery: Primary tubing; 19:40 Drug: predniSONE 40 mg Route: PO; tl3 20:36 Follow up: Response: No adverse reaction tl3 22:00 Not Given (pt already discharged): Xopenex 1.25 mg Inhalation once tl3 Outcome: 20:49 Discharge ordered by . jenny 21:10 Discharged to home tl3 21:10 Condition: stable 21:10 Discharge instructions given to patient, family, Instructed on discharge instructions, follow up and referral plans. medication usage, Demonstrated understanding of instructions, follow-up care, medications, Prescriptions given X 3. 22:05 Patient left the ED. tl3 Signatures: Dispatcher [employer] EDMS Daniel Olivia MD MD cha Rivera, Maria mr Bety Burleson, RN RN bb Terra Estrada RN RN aa5 Kera Mariscal RN RN tl3 Joni Hua RN RN [facility] Nicki Washburn mw3 Corrections: (The following items were deleted from the chart) 19:44 18:57 BP 122 / 99; Pulse 76bpm; Resp 28bpm; Pulse Ox 97% 2 lpm Nasal Cannula; tl3 tl3
--- NOTE | 2017-10-21 20:50 | EDPHYS ---
Physician Documentation [facility] Name: Yina Edouard Age: 72 yrs Sex: Female : 1945 Arrival Date: 10/21/2017 Time: 17:52 Bed 27 Private MD: Tevin Iniguez R ED Physician Daniel Olivia HPI: 10/21 18:48 This 72 yrs old Female presents to ER via Ambulatory with complaints of jenny Breathing Difficulty. 18:48 The patient has shortness of breath at rest, with light activity. Onset: The jenny symptoms/episode began/occurred just prior to arrival. Duration: The symptoms are continuous, and are steadily getting worse. The patient's shortness of breath has no apparent modifying factors. Associated signs and symptoms: The patient has no apparent associated signs or symptoms. Severity of symptoms: At their worst the symptoms were moderate in the emergency department the symptoms have improved mildly. The patient has experienced similar episodes in the past, multiple times. Historical: - Allergies: 17:58 Sulfa (Sulfonamide Antibiotics); aa5 - PMHx: 17:58 Bronchitis; Diabetes - NIDDM; Hypertension; COPD; aa5 - PSHx: 17:58 Heart stents; aa5 - Immunization history:: Adult Immunizations unknown. - Social history:: Smoking status: Patient uses tobacco products, smokes two packs cigarettes per day. - Ebola Screening: : No symptoms or risks identified at this time. - Family history:: not pertinent. ROS: 18:48 Constitutional: Negative for fever, chills, and weight loss, Eyes: Negative for injury, jenny pain, redness, and discharge, ENT: Negative for injury, pain, and discharge, Neck: Negative for injury, pain, and swelling, Cardiovascular: Negative for chest pain, palpitations, and edema, Abdomen/GI: Negative for abdominal pain, nausea, vomiting, diarrhea, and constipation, Back: Negative for injury and pain, : Negative for injury, bleeding, discharge, and swelling, MS/Extremity: Negative for injury and deformity, Skin: Negative for injury, rash, and discoloration, Neuro: Negative for headache, weakness, numbness, tingling, and seizure, Psych: Negative for depression, anxiety, suicide ideation, homicidal ideation, and hallucinations, Allergy/Immunology: Negative for hives, rash, and allergies, Endocrine: Negative for neck swelling, polydipsia, polyuria, polyphagia, and marked weight changes, Hematologic/Lymphatic: Negative for swollen nodes, abnormal bleeding, and unusual bruising. 18:48 Respiratory: Positive for cough, shortness of breath, wheezing, expiratory. Exam: 18:48 Constitutional: This is a well developed, well nourished patient who is awake, alert, jenny and in no acute distress. Head/Face: Normocephalic, atraumatic. Eyes: Pupils equal round and reactive to light, extra-ocular motions intact. Lids and lashes normal. Conjunctiva and sclera are non-icteric and not injected. Cornea within normal limits. Periorbital areas with no swelling, redness, or edema. ENT: Nares patent. No nasal discharge, no septal abnormalities noted. Tympanic membranes are normal and external auditory canals are clear. Oropharynx with no redness, swelling, or masses, exudates, or evidence of obstruction, uvula midline. Mucous membranes moist. Neck: Trachea midline, no thyromegaly or masses palpated, and no cervical lymphadenopathy. Supple, full range of motion without nuchal rigidity, or vertebral point tenderness. No Meningismus. Chest/axilla: Normal chest wall appearance and motion. Nontender with no deformity. No lesions are appreciated. Cardiovascular: Regular rate and rhythm with a normal S1 and S2. No gallops, murmurs, or rubs. Normal PMI, no JVD. No pulse deficits. Abdomen/GI: Soft, non-tender, with normal bowel sounds. No distension or tympany. No guarding or rebound. No evidence of tenderness throughout. Back: No spinal tenderness. No costovertebral tenderness. Full range of motion. Female : Normal external genitalia. Skin: Warm, dry with normal turgor. Normal color with no rashes, no lesions, and no evidence of cellulitis. 18:48 Respiratory: mild respiratory distress is noted, Respirations: labored breathing, that is mild, that is moderate, Breath sounds: bronchial sounds, decreased breath sounds, rhonchi, wheezing: expiratory Respiratory rate: 22 19:13 Musculoskeletal/extremity: DVT Exam: No signs of deep vein thrombosis. no pain, no jenny swelling, no tenderness, negative Homans' sign noted on exam, no appreciated bluish discoloration, no erythema, no increased warmth. Vital Signs: 17:57 BP 146 / 77; Pulse 82; Resp 18 S; Temp 97.8(TE); Pulse Ox 95% on R/A; Weight 73.48 kg aa5 (R); Pain 2/10; 18:33 BP 122 / 99; Pulse 76; Resp 28; Pulse Ox 97% on 2 lpm NC; tl3 19:00 BP 150 / 71; Pulse 70; Resp 24; Pulse Ox 100% on 2 lpm NC; tl3 19:30 BP 128 / 52; Pulse 79; Resp 20; Pulse Ox 95% on R/A; tl3 21:10 BP 117 / 79; Pulse 74; Resp 18; Pulse Ox 99% on R/A; tl3 17:57 Pt c/o pain to "between shoulder blades" aa5 MDM: 18:23 Patient medically screened. [facility] 18:50 Data reviewed: vital signs, nurses notes, lab test result(s), EKG, radiologic studies, [facility] CT scan, plain films. 10/21 18:25 Order name: Basic Metabolic Panel; Complete Time: 20:24 [facility] 10/21 18:25 Order name: CBC with Diff; Complete Time: 20:24 [facility] 10/21 18:25 Order name: Ckmb; Complete Time: 20:24 [facility] 10/21 18:25 Order name: CPK; Complete Time: 20:24 [facility] 10/21 18:25 Order name: LFT's; Complete Time: 20:24 [facility] 10/21 18:25 Order name: Magnesium; Complete Time: 20:24 [facility] 10/21 18:25 Order name: NT PRO-BNP; Complete Time: 20:24 [facility] 10/21 18:25 Order name: PT-INR; Complete Time: 20:24 [facility] 10/21 18:25 Order name: Ptt, Activated; Complete Time: 20:24 [facility] 10/21 18:25 Order name: Troponin (emerg Dept Use Only); Complete Time: 20:24 [facility] 10/21 18:25 Order name: Lipase; Complete Time: 20:24 [facility] 10/21 18:25 Order name: Blood Culture Adult (2) [facility] 10/21 18:45 Order name: ABG; Complete Time: 20:24 [facility] 10/21 19:19 Order name: Manual Differential; Complete Time: 20:24 EDMS 10/21 18:25 Order name: XRAY Chest (1 view); Complete Time: 20:24 [facility] 10/21 18:25 Order name: EKG; Complete Time: 18:26 [facility] 10/21 18:25 Order name: Cardiac monitoring; Complete Time: 18:56 [facility] 10/21 18:25 Order name: EKG - Nurse/Tech; Complete Time: 19:02 [facility] 10/21 18:25 Order name: IV Saline Lock; Complete Time: 18:56 [facility] 10/21 18:25 Order name: Labs collected and sent; Complete Time: 18:56 [facility] 10/21 18:25 Order name: O2 Per Protocol; Complete Time: 18:56 [facility] 10/21 18:53 Order name: CT Chest For PE Angio; Complete Time: 20:24 [facility] 10/21 20:58 Order name: Urine Dipstick--Ancillary (enter results) 2 10/21 20:58 Order name: Urine Dipstick-Ancillary [facility] 10/21 18:25 Order name: O2 Sat Monitoring; Complete Time: 18:56 [facility] Administered Medications: 19:02 Drug: NS 0.9% 1000 ml Route: IV; Rate: 125 ml/hr; Site: left forearm; mg2 19:02 Drug: SOLU-Medrol 125 mg Route: IVP; Site: left forearm; mg2 19:44 Follow up: Response: No adverse reaction tl3 19:02 Drug: Albuterol - atroVENT (3:1) (2.5 mg - 0.5 mg) 3 ml Route: Nebulizer; mg2 19:29 Follow up: Response: No adverse reaction; Wheezing diminished tl3 19:40 Drug: levofloxacin 500 mg Volume: 100 ml; Route: IVPB; Infused Over: 60 mins; Site: tl3 left forearm; Delivery: Primary tubing; 19:40 Drug: predniSONE 40 mg Route: PO; tl3 20:36 Follow up: Response: No adverse reaction tl3 22:00 Not Given (pt already discharged): Xopenex 1.25 mg Inhalation once tl3 Disposition: 10/21/17 20:49 Discharged to Home. Impression: Chronic obstructive pulmonary disease with (acute) exacerbation, Type 2 diabetes mellitus, Elevated white blood cell count, Pneumonia due to other specified bacteria. - Condition is Stable. - Discharge Instructions: Asthma, Adult, Chronic Bronchitis, Chronic Obstructive Pulmonary Disease, Type 2 Diabetes Mellitus, Adult, Type 2 Diabetes Mellitus, Adult, [id number]. - Prescriptions for Levaquin 500 mg Oral Tablet - take 1 tablet by ORAL route once daily for 10 days; 7 tablet. Albuterol Sulfate 2.5 mg /3 mL (0.083 %) Inhalation Solution for Nebulization - inhale 1 unit by NEBULIZATION route every 8 hours As needed; 1 box. Prednisone 20 mg Oral Tablet - take 2 tablet by ORAL route once daily for 5 days; 10 tablet. Albuterol Sulfate 90 mcg/actuation - inhale 1-2 puff by INHALATION route every 4-6 hours; 1 Inhaler. - Medication Reconciliation Form, Thank You Letter, Antibiotic Education, Prescription Opioid Use form. - Follow up: Tevin Iniguez; When: 1 - 2 days; Reason: Recheck today's complaints, Continuance of care, Re-evaluation by your physician. - Problem is new. - Symptoms have improved. Signatures: Dispatcher [employer] EDDaniel Martinez MD MD cha Calderon, Audri RN RN aa5 Kera Mariscal RN RN tl3 Joni Hua RN RN mg2 Corrections: (The following items were deleted from the chart) 22:05 20:49 10/21/2017 20:49 Discharged to Home. Impression: Chronic obstructive pulmonary tl3 disease with (acute) exacerbation; Type 2 diabetes mellitus; Elevated white blood cell count; Pneumonia due to other specified bacteria. Condition is Stable. Discharge Instructions: Asthma, Adult, Chronic Bronchitis, Chronic Obstructive Pulmonary Disease, Type 2 Diabetes Mellitus, Adult, Type 2 Diabetes Mellitus, Adult, [id number]. Prescriptions for Levaquin 500 mg Oral Tablet - take 1 tablet by ORAL route once daily for 10 days; 10 tablet, Albuterol Sulfate 2.5 mg /3 mL (0.083 %) Inhalation Solution for Nebulization - inhale 1 unit by NEBULIZATION route every 8 hours As needed; 1 box, Prednisone 20 mg Oral Tablet - take 2 tablet by ORAL route once daily for 5 days; 10 tablet, Albuterol Sulfate 90 mcg/actuation - inhale 1-2 puff by INHALATION route every 4-6 hours; 1 Inhaler. and Forms are Medication Reconciliation Form, Thank You Letter, Antibiotic Education, Prescription Opioid Use. Follow up: Tevin Iniguez; When: 1 - 2 days; Reason: Recheck today's complaints, Continuance of care, Re-evaluation by your physician. Problem is new. Symptoms have improved. jenny
[2017-10-21 21:05] LABS: Urine Blood NEGATIVE (NEG); Urine Glucose NEGATIVE (NEG); Urine Protein NEGATIVE (NEG); Urine Specific Gravity 1.015 (1.005-1.030); Urine pH 7.5 (5.0-7.0)
--- NOTE | 2017-10-22 06:32 | EKG ---
Test Date: 2017-10-21 Test Time: 18:05:02 Compliance Tester: MANJINDER MEASUREMENT RESULTS: Intervals: Rate: 75 NJ: 158 QRSD: 90 QT: 380 QTc: 424 Shelly: P: 72 NJ: 158 QRS: 6 T: 59 INTERPRETIVE STATEMENTS: Normal sinus rhythm Possible Left atrial enlargement Borderline ECG Compared to ECG 10/18/2017 21:30:50 No significant changes Electronically Signed On 10-22-17 06:32:22 CDT by Milton Pulido
== END 2017-10-21 22:05 | disposition home or self-care (01) ==
LOC: ER 17:50
DX: J44.1 Chronic obstructive pulmonary disease with (acute) exacerbation (principal); D72.829 Elevated white blood cell count, unspecified; J15.8 Pneumonia due to other specified bacteria; E11.9 Type 2 diabetes mellitus without complications; I10 Essential (primary) hypertension; Z88.2 Allergy status to sulfonamides; F17.210 Nicotine dependence, cigarettes, uncomplicated; Z95.818 Presence of other cardiac implants and grafts
CPT/HCPCS: 36415; 71045; 71275; 80048; 80076; 81003; 82550; 82553; 82805; 83690; 83735; 83880; 84484; 85025; 85610; 85730; 87040 ×2; 93005; J2930; J7030; Q9967; 94640; 96374; 96375; 99285; J7512